=== PATIENT | male | born 1995 | race African-American/Black ===

== ENCOUNTER 2023-04-13 19:57 | Observation (INO) | payer OTHER ==
[2023-04-13] MEDS ORDERED: ASPIRIN 81 MG CHEWABLE TABLETS PO ONE (20:15)
[2023-04-13] MEDS ORDERED: ASPIRIN 81 MG CHEWABLE TABLETS ONE (20:29)
[2023-04-13 20:30] VITALS: BMI 36.5
[2023-04-13 20:36] LABS: HEMATOCRIT 47.5 % (35.4-49); HEMOGLOBIN 15.5 G/dL (11.7-16.9); MCH 28.1 pg (25.7-33.7); MCHC 32.7 g/dl (32.0-35.9); MEAN PLT VOLUME 8.1 fl (7.5-11.1); PLATELET COUNT 213.9 10^3/uL (134-434); RBC 5.52 10^6/uL (4.00-5.60); RDW 14.7 % (11.9-15.9); WHITE BLOOD COUNT 9.3 10^3/uL (4.0-10.8)
[2023-04-13 20:48] LABS: ALBUMIN 4.6 g/dl (3.4-5.0); BLOOD UREA NITROGEN 13.9 mg/dl (7-18); CALCIUM 10.3 mg/dl (8.5-10.1); MAGNESIUM 1.9 mg/dL (1.8-2.4); PHOSPHOROUS 2.12 (2.5-4.9); POTASSIUM 3.7 mmol/L (3.5-5.1); SGOT/AST 23.2 U/L (15-37); TOT PROT 7.3 g/dl (6.4-8.2)
[2023-04-13 21:39] LABS: BILIRUBIN,TOTAL 0.3 mg/dL (0.2-1)
[2023-04-13] MEDS ORDERED: MELATONIN 5 MG TABLETS PO PRN (23:56)
[2023-04-13] MEDS ORDERED: ACETAMINOPHEN 1000 MG/100 ML BAG IVPB PRN (23:56)
[2023-04-14 00:51] VITALS: RESP 18
[2023-04-14] MEDS ORDERED: SODIUM PHOSPHATE - 15 MM in SODIUM CHLORIDE 250 ML IVPB ONE (08:00)
[2023-04-14] MEDS ORDERED: SODIUM PHOSPHATE - 15 MM in SODIUM CHLORIDE 250 ML IV ONE (08:00)
[2023-04-14 08:48] LABS: BLOOD UREA NITROGEN 12.8 mg/dl (7-18); CALCIUM 9.2 mg/dl (8.5-10.1); CREATININE 0.9 mg/dl (0.6-1.3); POTASSIUM 3.8 mmol/L (3.5-5.1)
[2023-04-14 09:21] LABS: BASO % 0.6 % (0-2.0); EOS % 2.3 % (0-4.5); HEMATOCRIT 44.2 % (35.4-49); HEMOGLOBIN 14.2 GM/dL (11.7-16.9); LYMPH % 33.5 % (8-40); MCH 27.3 pg (25.7-33.7); MCHC 32.2 g/dl (32.0-35.9); MEAN CELL VOLUME 84.8 fl (80-96); MEAN PLT VOLUME 9.5 fl (7.5-11.1); MONO % 8.8 % (3.8-10.2); NEUT % 54.8 % (42.8-82.8); PLATELET COUNT 216 10^3/uL (134-434); RBC 5.21 M/mm3 (4.00-5.60); RDW 14.3 % (11.9-15.9)
[2023-04-14 13:48] VITALS: BP 165/94; PULSE 101; TEMP 98.6
[2023-04-14 15:16] LABS: COCAINE, UR NEGATIVE (NEGATIVE); OPIATES, URI NEGATIVE (NEGATIVE)
[2023-04-14 15:17] LABS: PHENCYCLIDINE,URINE NEGATIVE (NEGATIVE); URINE BARBITURATES NEGATIVE (NEGATIVE); URINE BENZODIAZEPINES NEGATIVE (NEGATIVE)
[2023-04-14 15:18] LABS: METHADONE, UR NEGATIVE (NEGATIVE); URINE AMPHETAMINES NEGATIVE (NEGATIVE)
[2023-04-14] MEDS ORDERED: ACETAMINOPHEN 325 MG TABLET (FP) PO PRN (23:51)
== END 2023-04-14 14:25 | disposition home or self-care (01) ==
LOC: FER 19:57 → FM/S 04-14 00:04
PROVIDERS: ADMIT Internal Medicine; ATTEND Internal Medicine
PROC: 3E0337Z Introduction of Electrolytic and Water Balance Substance into Peripheral Vein, Percutaneous Approach (ICD-10-PCS; principal; 2023-04-14)
DX: I10 Essential (primary) hypertension (principal); N28.1 Cyst of kidney, acquired; J45.909 Unspecified asthma, uncomplicated; R94.31 Abnormal electrocardiogram [ECG] [EKG]; R07.9 Chest pain, unspecified; Z29.8 Encounter for other specified prophylactic measures
CPT/HCPCS: 36415; 71045-TC-FY; 80048; 80053; 80061; 80307; 82306; 82550; 82553; 83036; 83735; 83970; 84100; 84484; 85025; 85027; 93005; 93010; 96365; 99285-25; G0378